=== PATIENT | female | born 1965 | race Caucasian/White ===

== ENCOUNTER 2016-08-25 17:00 | Emergency (ER) | payer OTHER ==
[2016-08-25] MEDS ORDERED: Sodium Chloride 0.9% 10 ML Syringe FLUSH PRN (17:04)
[2016-08-25] MEDS ORDERED: Sodium Chloride 0.9% 2.5 ML Syringe FLUSH PRN (17:04)
[2016-08-25] MEDS ORDERED: Alum Hydrox/Mag Hydrox/Simeth 15 ML, Metoclopramide 5 MG, Lidocaine 2% 5 ML PO ONE ×3 (17:10)
[2016-08-25] MEDS ORDERED: Famotidine 20 MG/2 ML SDV IVPUSH ONE (17:11)
[2016-08-25] MEDS ORDERED: Aspirin 81 MG Tab.Chew PO ONE (17:11)
--- NOTE | 2016-08-25 17:11 | EDM.PDOC ---
ED HISTORY OF PRESENT ILLNESS - General Chief Complaint: Cardiovascular Problem Stated Complaint: CHEST PAIN Time Seen by Provider: 08/25/16 17:05 Source of Information: Reports: Patient History Limitations: Reports: No limitations - History of Present Illness INITIAL COMMENTS - FREE TEXT/NARRATIVE: HISTORY AND PHYSICAL: History of present illness: [Patient comes to the emergency room complaining of chest heaviness and tightness. Symptoms began around 11 AM this morning and have continued throughout the day. She describes the sensation as pressure to her chest and a feeling like a gaping hole in her upper abdomen. She describes a sensation of her heart skipping beats in her chest. She denies any shortness of breath with her symptoms. She is feeling more relaxed since she arrived to the ER for evaluation. She's not taken any medication for her symptoms. Denies any recent illnesses or infections. No recent hospitalizations. Denies a history of surgeries. Has a history of GI ulcers many years ago. She does not like to take medications, and in the past has used baking soda for abdominal discomfort.] Review of systems: As per history of present illness and below otherwise all systems reviewed and negative. Past medical history: As per history of present illness and as reviewed below otherwise noncontributory. Surgical history: As per history of present illness and as reviewed below otherwise noncontributory. Social history: No reported history of drug or alcohol abuse. Family history: As per history of present illness and as reviewed below otherwise noncontributory. Physical exam: HEENT: Atraumatic, normocephalic. Oral mucous membranes are pink and moist. throat clear, neck supple, nontender, trachea midline. Lungs: Clear to auscultation, wheezing crackles or rales. chest nontender. Heart: S1S2, regular rate and rhythm. negative for clicks, rubs, or JVD. Abdomen: Normoactive bowel sounds. Abdomen is soft, nondistended. She is tender with palpation over the epigastric area. Negative for masses or hepatosplenomegaly. Negative for costovertebral tenderness. Genitourinary: Deferred. Rectal: Deferred. Extremities: Atraumatic, negative for cords or calf pain. No cyanosis or edema to feet or lower legs. Neurovascular unremarkable. Neuro: Awake, alert, oriented. Motor and sensory unremarkable throughout. Exam nonfocal. Diagnostics: [CBC, CMP, troponin, lipase, amylase, EKG, chest x-ray] Therapeutics: [Aspirin 324 mg by mouth, GI cocktail] Impression: [Chest pain, noncardiac] Plan: [Discussed with patient that her labs are within normal limits and the cause of her pain does not appear to be cardiac in nature. Her symptoms resolved completely with a GI cocktail. recommended she treat with Zantac or Pepcid twice daily and to establish care with a local primary care provider to discuss. She verbalized understanding of today's plan. is at the bedside and has no questions or further concerns.] Definitive disposition and diagnosis as appropriate pending reevaluation and review of above. - Related Data Allergies/ADRs: Allergies Allergy/AdvReac Type Severity Reaction Status Date / Time No Known Allergies Allergy Verified 08/25/16 17:12 Home Meds: Home Meds . [No Known Home Meds] 12/07/13 [History] Past Medical History - Past Health History Medical/Surgical History: Denies Medical/Surgical History Social & Family History - Tobacco Use Smoking Status *Q: Current Every Day Smoker Years of Tobacco use: 30 Second Hand Smoke Exposure: No - Alcohol Use Days Per Week of Alcohol Use: 0 - Recreational Drug Use Recreational Drug Use: No Recreational Drug Type: Reports: Marijuana/Hashish ED ROS GENERAL - Review of Systems Review Of Systems: ROS reveals no pertinent complaints other than HPI. ED EXAM, GENERAL - Physical Exam Exam: See Below Course - Vital Signs Last Recorded V/S: Last Vital Signs Temp 98.5 F 08/25/16 18:52 Pulse 52 L 08/25/16 18:52 Resp 18 08/25/16 18:52 BP 131/85 08/25/16 18:52 Pulse Ox 99 08/25/16 18:52 - Orders/Labs/Meds Orders: Active Orders 24 hr Category Date Time Status EKG Documentation Completion [RC] STAT Care 08/25/16 17:04 Active Chest 2V [CR] Stat Exams 08/25/16 17:05 Taken Sodium Chloride 0.9% [Saline Flush] Med 08/25/16 17:04 Active 10 ml FLUSH ASDIRECTED PRN Sodium Chloride 0.9% [Saline Flush] Med 08/25/16 17:04 Active 2.5 ml FLUSH ASDIRECTED PRN Saline Lock Insert [OM.PC] Stat Oth 03/01/17 17:04 Ordered Medication Orders Sodium Chloride (Saline Flush) 10 ml FLUSH ASDIRECTED PRN PRN Reason: Keep Vein Open Sodium Chloride (Saline Flush) 2.5 ml FLUSH ASDIRECTED PRN PRN Reason: Keep Vein Open Labs: Laboratory Tests 08/25/16 08/25/16 08/25/16 Range/Units 17:18 17:18 17:18 WBC 7.21 (4.0-11.0) K/uL RBC 4.56 (4.30-5.90) M/uL Hgb 13.5 (12.0-16.0) g/dL Hct 41.6 (36.0-46.0) % MCV 91.2 (80.0-98.0) fL MCH 29.6 (27.0-32.0) pg MCHC 32.5 (31.0-37.0) g/dL RDW Std Deviation 44.6 (28.0-62.0) fl RDW Coeff of Radha 13 (11.0-15.0) % Plt Count 236 (150-400) K/uL MPV 11.10 (7.40-12.00) fL Neut % (Auto) 50.2 (48.0-80.0) % Lymph % (Auto) 39.5 (16.0-40.0) % Rolette % (Auto) 7.8 (0.0-15.0) % Eos % (Auto) 1.7 (0.0-7.0) % Baso % (Auto) 0.8 (0.0-1.5) % Neut # 3.6 (1.4-5.7) K/uL Lymph # 2.9 H (0.6-2.4) K/uL Rolette # 0.6 (0.0-0.8) K/uL Eos # 0.1 (0.0-0.7) K/uL Baso # 0.1 (0.0-0.1) K/uL Nucleated RBC % 0.0 /100WBC Nucleated RBCs # 0 K/uL Sodium 141 (136-146) mmol/L Potassium 4.3 (3.5-5.1) mmol/L Chloride 107 (98-110) mmol/L Carbon Dioxide 24 (21-31) mmol/L BUN 19 (6.0-23.0) mg/dL Creatinine 0.8 (0.6-1.5) mg/dL Est Cr Clr Drug Dosing TNP Estimated GFR (MDRD) > 60.0 ml/min Glucose 101 (60-110) mg/dL Calcium 10.2 (8.8-10.8) mg/dL Total Bilirubin 0.4 (0.1-1.5) mg/dL AST 21 (5-40) IU/L ALT 30 (8-54) IU/L Alkaline Phosphatase 59 (40-150) Troponin I < 0.10 (0.0-0.29) NG/ML Total Protein 7.9 (6.0-8.0) g/dL Albumin 4.4 (3.5-5.0) g/dL Globulin 3.5 (2.0-3.5) g/dL Albumin/Globulin Ratio 1.3 (1.3-2.8) Amylase 99 H (10-90) U/L Lipase 71 (7-80) U/L Urine Color Urine Appearance Urine pH (5.0-8.0) Ur Specific Empire (1.001-1.035) Urine Protein (NEGATIVE) mg/dL Urine Glucose (UA) (NEGATIVE) mg/dL Urine Ketones (NEGATIVE) mg/dL Urine Occult Blood (NEGATIVE) Urine Nitrite (NEGATIVE) Urine Bilirubin (NEGATIVE) Urine Urobilinogen (<2.0) EU/dL Ur Leukocyte Esterase (NEGATIVE) Urine RBC (0-2/HPF) Urine WBC (0-5/HPF) Ur Epithelial Cells (NONE-FEW) Urine Bacteria (NEGATIVE) 08/25/16 Range/Units 17:50 WBC (4.0-11.0) K/uL RBC (4.30-5.90) M/uL Hgb (12.0-16.0) g/dL Hct (36.0-46.0) % MCV (80.0-98.0) fL MCH (27.0-32.0) pg MCHC (31.0-37.0) g/dL RDW Std Deviation (28.0-62.0) fl RDW Coeff of Radha (11.0-15.0) % Plt Count (150-400) K/uL MPV (7.40-12.00) fL Neut % (Auto) (48.0-80.0) % Lymph % (Auto) (16.0-40.0) % Rolette % (Auto) (0.0-15.0) % Eos % (Auto) (0.0-7.0) % Baso % (Auto) (0.0-1.5) % Neut # (1.4-5.7) K/uL Lymph # (0.6-2.4) K/uL Rolette # (0.0-0.8) K/uL Eos # (0.0-0.7) K/uL Baso # (0.0-0.1) K/uL Nucleated RBC % /100WBC Nucleated RBCs # K/uL Sodium (136-146) mmol/L Potassium (3.5-5.1) mmol/L Chloride (98-110) mmol/L Carbon Dioxide (21-31) mmol/L BUN (6.0-23.0) mg/dL Creatinine (0.6-1.5) mg/dL Est Cr Clr Drug Dosing Estimated GFR (MDRD) ml/min Glucose (60-110) mg/dL Calcium (8.8-10.8) mg/dL Total Bilirubin (0.1-1.5) mg/dL AST (5-40) IU/L ALT (8-54) IU/L Alkaline Phosphatase (40-150) Troponin I (0.0-0.29) NG/ML Total Protein (6.0-8.0) g/dL Albumin (3.5-5.0) g/dL Globulin (2.0-3.5) g/dL Albumin/Globulin Ratio (1.3-2.8) Amylase (10-90) U/L Lipase (7-80) U/L Urine Color YELLOW Urine Appearance CLEAR Urine pH 6.0 (5.0-8.0) Ur Specific Empire <= 1.005 (1.001-1.035) Urine Protein NEGATIVE (NEGATIVE) mg/dL Urine Glucose (UA) NEGATIVE (NEGATIVE) mg/dL Urine Ketones NEGATIVE (NEGATIVE) mg/dL Urine Occult Blood TRACE-LYSED (NEGATIVE) Urine Nitrite NEGATIVE (NEGATIVE) Urine Bilirubin NEGATIVE (NEGATIVE) Urine Urobilinogen 0.2 (<2.0) EU/dL Ur Leukocyte Esterase NEGATIVE (NEGATIVE) Urine RBC 0-1 (0-2/HPF) Urine WBC 0-1 (0-5/HPF) Ur Epithelial Cells RARE (NONE-FEW) Urine Bacteria RARE (NEGATIVE) Meds: Medications Generic Name Dose Route Start Last Admin Trade Name [place] PRN Reason Stop Dose Admin Sodium Chloride 10 ml 08/25/16 17:04 Saline Flush FLUSH ASDIRECTED PRN Keep Vein Open Sodium Chloride 2.5 ml 08/25/16 17:04 Saline Flush FLUSH ASDIRECTED PRN Keep Vein Open Discontinued Medications Generic Name Dose Route Start Last Admin Trade Name Freq PRN Reason Stop Dose Admin Aspirin 324 mg 08/25/16 17:11 08/25/16 17:45 Aspirin PO 08/25/16 17:12 324 mg ONETIME ONE Administration Al Hydroxide/Mg Hydroxide 15 0 ml 08/25/16 17:10 08/25/16 17:41 ml/ Metoclopramide HCl 5 mg/ PO 08/25/16 17:11 1 each Lidocaine HCl 5 ml ONETIME ONE Administration Famotidine 20 mg 08/25/16 17:11 08/25/16 17:36 Pepcid IVPUSH 08/25/16 17:12 20 mg ONETIME ONE Administration Departure - Departure Time of Disposition: 19:00 Disposition: Home, Self-Care 01 Condition: good Clinical Impression: Epigastric pain Instructions: Abdominal Pain, Adult Referrals: PCP,None [Primary Care Provider] - Forms: ED Department Discharge Additional Instructions: The following information is given to patients seen in the emergency department who are being discharged to home. This information is to outline your options for follow-up care. We provide all patients seen in our emergency department with a follow-up referral. The need for follow-up, as well as the timing and circumstances, are variable depending upon the specifics of your emergency department visit. If you don't have a primary care physician on staff, we will provide you with a referral. We always advise you to contact your personal physician following an emergency department visit to inform them of the circumstance of the visit and for follow-up with them and/or the need for any referrals to a consulting specialist. The emergency department will also refer you to a specialist when appropriate. This referral assures that you have the opportunity for follow-up care with a specialist. All of these measure are taken in an effort to provide you with optimal care, which includes your follow-up. Under all circumstances we always encourage you to contact your private physician who remains a resource for coordinating your care. When calling for follow-up care, please make the office aware that this follow-up is from your recent emergency room visit. If for any reason you are refused follow-up, please contact the [facility] emergency department at and asked to speak to the emergency department charge nurse. [address] [address] Establish care with a provider at the clinic listed above. Recommend Pepcid or Zantac twice daily. This medication is available over-the- counter. Return to ER as needed and discussed. - My Orders Last 24 Hours: My Active Orders 08/25/16 17:04 EKG Documentation Completion [RC] STAT Sodium Chloride 0.9% [Saline Flush] 10 ml FLUSH ASDIRECTED PRN Sodium Chloride 0.9% [Saline Flush] 2.5 ml FLUSH ASDIRECTED PRN Saline Lock Insert [OM.PC] Stat 08/25/16 17:05 Chest 2V [CR] Stat - Assessment/Plan Last 24 Hours: My Active Orders 08/25/16 17:04 EKG Documentation Completion [RC] STAT Sodium Chloride 0.9% [Saline Flush] 10 ml FLUSH ASDIRECTED PRN Sodium Chloride 0.9% [Saline Flush] 2.5 ml FLUSH ASDIRECTED PRN Saline Lock Insert [OM.PC] Stat 08/25/16 17:05 Chest 2V [CR] Stat
[2016-08-25 17:50] LABS: CHLORIDE,CL 107 mmol/L (98-110); SODIUM,NA 141 mmol/L (136-146)
[2016-08-25 21:27] VITALS: BP 110/53
--- NOTE | 2016-08-26 10:43 | CR ---
EXAM DATE: 08/25/16 PATIENT'S AGE: 51 Patient: MEAGAN MUNGUIA Facility: [place], [place] Site . Site : [id number] Study: XRay Chest [id number]/1/2017 6:32:40 PM Ordering Physician: Doctor Shirley Final Report: INDICATION: palpitations TECHNIQUE: Chest radiograph 2 views COMPARISON: 09/27/14 FINDINGS: Cardiovascular and mediastinum: The cardiac silhouette is normal in appearance and size. Mediastinum is within normal limits. Lungs and pleural spaces: Both lungs are unremarkable in appearance. No sign of pleural effusion. No pneumothorax is seen. Bones and soft tissues: No significant findings. IMPRESSION: 1. No acute cardiopulmonary disease seen. Dictated by: Obed Bradley MD @ 08/25/2016 18:33:48 (Electronic Signature) Report Signed by Proxy and Original Signed Document filed in the Medical Record. MTDD
== END 2016-08-25 19:11 | disposition home or self-care (01) ==
LOC: MW.ED 17:00
DX: R07.89 Other chest pain (principal); R10.10 Upper abdominal pain, unspecified; R10.13 Epigastric pain; F17.200 Nicotine dependence, unspecified, uncomplicated
CPT/HCPCS: 36415; 71020; 80053; 81001; 82150; 83690; 84484; 85025; 93005; 96374; 99285; A9270; 99284